=== PATIENT | female | born 1980 | race Caucasian/White ===

== ENCOUNTER 2016-06-12 07:05 | Day surgery (SDC) | payer MEDICAID ==
[~2016-06-12 07:05] MED LIST: Bupivacaine 0.5%/EPINEPHrine 1:200,000 50 ML MDV ONE
[2016-06-12] MEDS ORDERED: Naloxone 0.4 MG/ML SDV IVPUSH PRN (07:17)
[2016-06-12] MEDS ORDERED: HYDROmorphone/Normal Saline 15 MG/30 ML PCA IV PRN (07:17)
[2016-06-12] MEDS ORDERED: Succinylcholine/Normal Saline 200 MG/10 ML Syringe ONE (07:41)
[2016-06-12] MEDS ORDERED: Ondansetron 4 MG/2 ML SDV ONE (07:41)
[2016-06-12] MEDS ORDERED: Neostigmine Methylsulfate 1 MG/ML 5 ML Syringe ONE (07:41)
[2016-06-12] MEDS ORDERED: Dexamethasone 4 MG/ML SDV ONE (07:41)
[2016-06-12] MEDS ORDERED: Midazolam 1 MG/ML 2 ML SDV ONE (07:41)
[2016-06-12] MEDS ORDERED: Propofol 200 MG/20 ML SDV ONE (07:41)
[2016-06-12] MEDS ORDERED: fentaNYL 250 MCG/5 ML SDV ONE (07:41)
[2016-06-12] MEDS ORDERED: Rocuronium 50 MG/5 ML Vial ONE (07:41)
[2016-06-12] MEDS ORDERED: Dextrose 5%-Lactated Ringers 1,000 ML IV SCH (08:30)
[2016-06-12] MEDS ORDERED: cefOXitin 2 GM in Sodium Chloride 0.9% 50 ML IV ONE (09:00)
[2016-06-12] MEDS: Ondansetron 4 MG/2 ML SDV IV PRN ×2 (10:30→14:50)
[2016-06-12] MEDS ORDERED: Naloxone 0.4 MG/ML SDV IV PRN (11:23)
[2016-06-12] MEDS ORDERED: Meperidine 300 MG/30 ML PCA Vial IV PRN (11:23)
[2016-06-12] MEDS ORDERED: Metoclopramide 10 MG/2 ML SDV IVPUSH ONE (11:30)
[2016-06-12] MEDS ORDERED: Pantoprazole 40 MG Vial IVPUSH SCH (12:00)
[2016-06-12] MEDS: cefOXitin 2 GM in Sodium Chloride 0.9% 50 ML IV SCH ×2 (14:08→20:01)
[2016-06-12] MEDS: Acetaminophen/HYDROcodone 325-5 MG Tab PO PRN ×2 (15:55→21:00)
[2016-06-12] MEDS: LORazepam 2 MG/ML MDV IVPUSH PRN ×2 (15:55→21:01)
[2016-06-12] MEDS ORDERED: Metoclopramide 10 MG/2 ML SDV IVPUSH PRN (16:00)
[2016-06-12] MEDS: Dextrose 5%-Lactated Ringers 1,000 ML IV SCH (17:59)
[2016-06-13] MEDS: Acetaminophen/HYDROcodone 325-5 MG Tab PO PRN ×2 (01:48→07:47)
[2016-06-13] MEDS: Dextrose 5%-Lactated Ringers 1,000 ML IV SCH (02:11)
[2016-06-13 07:50] VITALS: BP 115/65
[2016-06-13] MEDS ORDERED: LORazepam 1 MG Tab PO ONE (09:06)
--- NOTE | 2016-06-14 11:50 | DISCH ---
FINAL DIAGNOSIS: Biliary dyskinesia associated with gallbladder polyps. SECONDARY DIAGNOSIS: Bariatric surgery status. OPERATIVE PROCEDURE: This was done on 06/12/2016, was laparoscopic cholecystectomy. HOSPITAL COURSE: This is a 36-year-old female presenting with episodes of right upper quadrant pain radiating to the back. An ultrasound was obtained, which showed some gallbladder polyps one of which was near the gallbladder neck and a HIDA scan was obtained. This showed a normal ejection fraction, but the CCK injection more or less reproduced her symptoms. On the day of admission, the patient underwent diagnostic laparoscopy and cholecystectomy was performed. Gallbladder did not have marked cholesterolosis on being opened postoperatively along with some sludge within it and it appears to be somewhat inflamed. The patient had quite a bit in the way of adhesions in the midline. She stated that the episodes she is having now are nothing like when she had bowel obstruction previously and given this those were not taken down, but avoided by lateral approach to the gallbladder. Postoperatively, she has done well. She will be discharged home on her usual medications plus [place] 5/325 one to two tabs q.4 hours p.r.n. pain, #50. Follow up will be with Liliana Lara PA-C at [facility] on 06/22/2016.
--- NOTE | 2016-06-15 11:58 | OR ---
DATE OF PROCEDURE: 06/12/2016 PREOPERATIVE DIAGNOSIS: Chronic cholecystitis with associated gallbladder polyps. POSTOPERATIVE DIAGNOSIS: Chronic cholecystitis with associated gallbladder polyps. OPERATIVE PROCEDURE: Laparoscopic cholecystectomy ([id number]). ANESTHESIA: General. SECTION LEADER AND MACHINE SETTER: Liliana Lara PA-C. INDICATION FOR PROCEDURE: This is a 36-year-old female presenting with fairly classic biliary colic and postprandial episodes of right upper quadrant pain radiating to the back. This occurs with marked episodes with days or weeks between the episodes. This appeared to be different than her previous episodes of small bowel obstruction. The plan is to proceed with a laparoscopic cholecystectomy. We will look at the small bowel to the extent visualized, but given the symptom pattern and the fact that the CCK injection more or less recreated the patient's symptoms, an extensive lysis of adhesions would likely not be appropriate and will remain primarily getting the gallbladder out. Potential risks of the procedure, including bleeding, infection, injury to the underlying viscera, possible persistent symptoms postoperatively were all reviewed, and the patient wishes to proceed. DETAILS OF PROCEDURE: The patient was taken to the operating room and placed in a supine position. After general endotracheal anesthesia was induced, the abdomen was prepped and draped. Beginning in the area just to the right of the umbilicus, a transverse incision was made, and using Optiview trocar, the rectus muscle was traversed. As one was pushing away the peritoneum, there appeared to be some fixed bowel present. This was not entered by any stretch, but the decision was made to withdraw that trocar at that level. A new incision was made somewhat more inferiorly, and a clean entrance into the peritoneal cavity was accomplished. The previous area was confirmed not to have gone through the peritoneal cavity or into the area of the bowel, as this was clean and mobile and clearly uninjured. A 12 mm epigastric trocar was then placed, along with a 5 mm right abdominal trocar. Some adhesions overlying the gallbladder were taken down with Harmonic scalpel; these being between the abdominal wall and omentum, but there was otherwise a broad wall of adhesions along her midline incision, which were not disturbed. The gallbladder was quite distended and fairly edematous at the level of the gallbladder and cystohepatic triangle. Gallbladder was retracted anterolaterally and dissection began with Harmonic scalpel and continued around the gallbladder neck/cystic duct junction. Once this area, along with the cystic artery, were both clearly delineated, 3 clips were placed proximally and 1 distally in each case and those structures divided. The gallbladder was then dissected off the gallbladder bed using Harmonic scalpel and delivered through the epigastric trocar site. It was noted to have some fine sludge within it, which was evacuated with a suction and had an intense cholesterolosis, giving it a "strawberry gallbladder" appearance. The area of dissection was inspected. A drain was not felt to be necessary. The trocars were then sequentially removed. The fascia at the 12 mm sites was closed with 0 Vicryl stitch and the skin with 4-0 Vicryl skin stitch. Dressing was applied. The patient was taken to the recovery room in satisfactory condition. Physician assistant teacher primary, Liliana Lara, played an essential role in assisting in this case, helping to position the patient, retract structures as needed, as well as suturing and cutting sutures when indicated. Her presence improved patient safety and decreased the operative time. Dk Asencio MD /[id number]
== END 2016-06-13 09:18 | disposition home or self-care (01) ==
LOC: JP.SDS 07:05 → JP.2SS 10:00 → JP.SDS 06-13 09:18
PROVIDERS: ATTEND Surgery
PROC: 0FT44ZZ Resection of Gallbladder, Percutaneous Endoscopic Approach (ICD-10-PCS; principal; 2016-06-12)
DX: K81.1 Chronic cholecystitis (principal); E53.8 Deficiency of other specified B group vitamins; E55.9 Vitamin D deficiency, unspecified; Z79.899 Other long term (current) drug therapy; Z98.84 Bariatric surgery status
CPT/HCPCS: 36415; 47562; 82247; 84075; 85027; A9270; C9113; J0694; J1100; J1170; J2060; J2175; J2250; J2405; J2704; J2765; J3010; J7042; J7050; 88304